=== PATIENT | female | born 1965 | race Caucasian/White ===

== ENCOUNTER 2025-02-11 06:16 | Day surgery (SDC) | payer OTHER ==
[2025-02-11] MEDS ORDERED: Midazolam 1 MG/ML 2 ML SDV ONE (06:57)
[2025-02-11] MEDS ORDERED: fentaNYL 50 MCG/ML SDV ONE (06:57)
[2025-02-11] MEDS ORDERED: Propofol 200 MG/20 ML SDV ONE ×3 (06:57→07:58)
[2025-02-11] MEDS: Lactated Ringers 1,000 ML IV SCH (07:14)
[2025-02-11 09:16] VITALS: BP 124/67; PULSE 63
== END 2025-02-11 09:25 | disposition home or self-care (01) ==
LOC: JP.SDS 06:16
PROVIDERS: ATTEND Surgery
DX: Z12.11 Encounter for screening for malignant neoplasm of colon (principal); I10 Essential (primary) hypertension
CPT/HCPCS: 45378; J2250; J2704; J3010; J7120